=== PATIENT | male | born 1970 | race Caucasian/White ===

== ENCOUNTER 2020-05-26 02:00 | Emergency (ER) | payer SELFPAY ==
[~2020-05-26] VITALS: Ht 175.3 cm; Wt 104.3 kg
[2020-05-26 02:01] VITALS: BP 145/89
--- NOTE | 2020-05-26 02:03 | NUR ---
PT BIBA C/O R KNEE PAIN X 2 DAYS.-SWELLING -REDNESS. PT DENIES ANY TRAUMA. PT AAOX4, VSS, RESPIRATIONS EVEN AND UNLABORED ON RA W/ NAD NOTED. PT CONNECTED TO THE MONITOR AND POX
[2020-05-26] MEDS ORDERED: IBUPROFEN 400 MG TABLET PO ONE (02:30)
--- NOTE | 2020-05-26 02:30 | NUR ---
Patient discharged to home in stable condition. Pt left without dc instructions
--- NOTE | 2020-05-26 02:30 | NUR ---
Pt ambulatory w/ steady gait
== END 2020-05-26 02:32 | disposition home or self-care (01) ==
LOC: ER 02:02
DX: M25.561 Pain in right knee (principal); E11.9 Type 2 diabetes mellitus without complications; Z98.890 Other specified postprocedural states
CPT/HCPCS: 73564-TC